=== PATIENT | male | born 1995 | race Caucasian/White ===

== ENCOUNTER → 2018-11-11 | Outpatient (CLI) | payer SELFPAY | END | disposition home or self-care (01) | LOC: RAH 13:40 | PROVIDERS: ATTEND Family Medicine | DX: N13.2 Hydronephrosis with renal and ureteral calculous obstruction (principal); R31.21 Asymptomatic microscopic hematuria | CPT/HCPCS: 74176 ==

== ENCOUNTER → 2020-02-14 | Outpatient (CLI) | payer SELFPAY | END | disposition home or self-care (01) | LOC: RAH 13:48 | PROVIDERS: ATTEND Family Medicine | DX: N13.2 Hydronephrosis with renal and ureteral calculous obstruction (principal); J98.11 Atelectasis; K76.0 Fatty (change of) liver, not elsewhere classified | CPT/HCPCS: 74176 ==